=== PATIENT | female | born 2000 | race African-American/Black ===

== ENCOUNTER 2022-04-24 16:05 | Emergency (ER) | payer SELFPAY ==
--- NOTE | ~2022-04-24 | CT_ITS ---
EXAMINATION: CT abdomen pelvis w con DATE: 04/24/2022 18:41 INDICATION: lower ABD pain, N/V/D TECHNIQUE: Computed tomography (CT) of the abdomen and pelvis was performed intravenous contrast. Aut omated exposure control and iterative reconstruction technique were employed. The dose-length product was 195.17 mGy-cm. COMPARISON: None. FINDINGS: Lower thorax: Unremarkable Liver: Normal. Biliary/Gallbladder: Gallbladder is normal. No bile duct dilation. Pancreas: No mass or duct dilation. Spleen: Normal. Adrenals:No mass. Kidneys: No mass, stone, or hydronephrosis. GI tract: Distal esophageal and gastric wall edema. No small or large bowel dilation. The appendix is not visualized. Mesentery/Peritoneum: No ascites, mass, or free air. Retroperitoneum: No mass. Pelvis: Small volume free pelvic fluid, within visualized range. 2.3 cm simple appearing right ovaria n cyst. Fluid distends the normal-appearing endometrial cavity. Soft Tissues: Soft tissues and body wall unremarkable. Bones: No acute osseous finding. IMPRESSION: Esophagitis/gastritis. No other acute abdominopelvic process detected. Appendix not visualized, altho ugh there is no significant right lower quadrant inflammatory change appreciated. Reviewed, dictated and finalized at location [facility] [employer] IMPRESSION: Esophagitis/gastritis. No other acute abdominopelvic process detected. Appendix not visualized, although there is no significant right lower quadrant inflamma tory change appreciated.
[2022-04-24 16:08] VITALS: BP 119/77; PULSE 101; RESP 20; TEMP 39; O2SAT 100
--- NOTE | 2022-04-24 17:13 | ED.GENADULT ---
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 Patient reports having pain for the past 2 days. She states it feels like something is sitting on her uterus. She states pain radiates and is aching down her legs. She also reports having 1 episode of vaginal spotting, nausea and diarrhea today, and subjective fevers at home. She does report having cough, headache, myalgias and notes her significant other has been sick as well. She is not vaccinated for COVID or flu. Denies vomiting, diarrhea, constipation, dysuria, hematuria, chest pain, shortness of breath. Related Data Allergies Allergy/AdvReac Type Severity Reaction Status Date / Time No Known Allergies Allergy Verified 04/24/22 16:34 Review of Systems Review of Systems: CONSTITUTIONAL: Reports subjective fevers. CARDIOVASCULAR: Denies chest pain. RESPIRATORY: Reports cough. Denies dyspnea. GASTROINTESTINAL: Reports lower abdominal pain, nausea, and diarrhea. Denies vomiting, rectal bleeding, constipation. GENITOURINARY: Reports vaginal spotting. Denies dysuria or hematuria. MUSCULOSKELETAL: Reports pain in legs radiated from abdominal pain, myalgias. NEUROLOGIC: Reports LEE. All systems reviewed & are unremarkable except as noted in HPI and below PMFSH Past Medical History Medical History No pertinent past medical history Surgical History Surgical History (Updated 04/24/22 @ 17:20 by Alysia Paige PA-C) No pertinent past surgical history Social History Social History (Updated 04/24/22 @ 17:20 by Alysia Paige PA-C) Smoking status: Never smoker Exam Narrative: GENERAL: Well appearing, well-nourished, non-toxic, in no acute distress. HEAD: Normocephalic, atraumatic. NECK: Supple. No adenopathy, no masses. RESPIRATORY: Airway patent, respirations nonlabored. Clear to auscultation bilaterally, no rales, rhonchi, wheezing. CARDIOVASCULAR: Regular rate and rhythm without murmurs, rubs, or gallops. Peripheral pulses 2+ and equal bilaterally. ABDOMINAL: Soft, tenderness to palpation throughout lower abdomen, worst in suprapubic region, nondistended, no hepatosplenomegaly. Normoactive BS. PELVIC: Normal external genitalia. No vaginal bleeding. Normal-appearing closed cervix. Mild amount of physiologic discharge. No significant CMT. MUSCULOSKELETAL: Moves all extremities. Strength/ROM intact without gross deformities. SKIN: Warm, dry, normal color. No rashes. NEURO: A&O X3. Speech clear. Cranial nerves II-XII grossly intact. Steady gait. No ataxic movements. PSYCHIATRIC: Appropriate mood and affect. Normal interaction. Course Vital Signs Vital signs: Vital Signs Temperature 102.2 F H 04/24/22 16:08 Pulse Rate 101 H 04/24/22 16:08 Respiratory Rate 20 04/24/22 16:08 Blood Pressure 119/77 04/24/22 16:08 Pulse Oximetry 100 04/24/22 16:08 Oxygen Delivery Room Air 04/24/22 16:08 Temperature 98.4 F 04/24/22 17:23 Pulse Rate 78 04/24/22 21:25 Respiratory Rate 18 04/24/22 21:25 Blood Pressure 118/78 04/24/22 21:25 Pulse Oximetry 98 04/24/22 21:25 Oxygen Delivery Room Air 04/24/22 16:08 Medical Decision Making [facility] Narrative Medical decision making narrative: Patient presented to ED with 2-day history of lower abdominal pain, in addition to URI sx's. Temperature upon arrival 102.2, however on reevaluation with oral thermometer temperature within normal limits. She has not given antipyretics. Doubt accuracy of fever. Basic labs obtained and unremarkable. Urine with 4+ ketones. Likely due to dehydration. Normal blood sugar. No signs of infection on urin
[2022-04-24 17:23] VITALS: TEMP 36.9
[2022-04-24] MEDS: SODIUM CHLORIDE 0.9% IV 1,000 ML 999 ML IV CONT ×2 (17:30→19:17)
[2022-04-24 17:41] LABS: Appearance Urine Clear (Clear); Basophils Percent Auto 0.7 % (0.2-1.2); Bilirubin Urine 1+ (Negative); Blood Urine Trace-intact (Negative); Color Urine Yellow (Yellow); Eosinophils Percent Auto 0.2 % (0-4.4); Glucose Urine UA Negative (Negative); Hematocrit 36.1 % (37.0-47.0); Hemoglobin 11.6 g/dL (12.0-15.0); Immature Granulocyte Absolute 0.02 K/mm3 (0.00-0.031); Immature Granulocyte Percent A 0.3 % (0-0.5); Ketones Urine 4+ mg/dL (Negative); Leukocyte Esterase Ur Negative LEU/UL (Negative); Lymphocytes Absolute Auto 0.38 K/mm3 (0.9-3.2); Lymphocytes Percent Auto 6.3 % (18.3-44.2); Mean Corpuscular HGB Conc 32.1 g/dl (32-36); Mean Corpuscular Hemoglobin 28.7 pg (26-34); Mean Corpuscular Volume 89.4 fl (80-100); Mean Platelet Volume 10.3 fl (7.4-10.4); Monocytes Percent Auto 16.3 % (2.6-8.5); Neutrophils Absolute Auto 4.6 K/mm3 (1.3-6.7); Neutrophils Percent Auto 76.2 % (45.5-73.1); Nitrate Urine Negative (Negative); Platelet Count Result 222 k/mm3 (150-375); Protein Urine 1+ mg/dL (Negative); Red Blood Count 4.04 M/mm3 (4.2-5.4); Red Cell Distribution Width 15.9 % (11.5-14.5)
[2022-04-24 17:46] LABS: Mucus Urine Rare /lpf; RBC Urine 0-2 /hpf (0-2); Squamous Epithelial Cell Urine Few /hpf (Few); WBC Urine 0-3 /hpf
[2022-04-24 17:47] LABS: Lactic Acid Reflex 1.6 mmol/L (0.7-2.0)
[2022-04-24 17:48] LABS: Add Urine Microscopic? YES
[2022-04-24 18:11] LABS: Alanine Aminotransferase 14 U/L (6-35); Albumin Level 4.9 g/dL (3.5-5.1); Alkaline Phosphatase 48 U/L (38-126); Anion Gap 12 mmol/L (8-16); Aspartate Amino Transferase 32 U/L (14-36); Bilirubin,Total 0.5 mg/dL (0.2-1.3); Blood Urea Nitrogen 7 mg/dL (7-17); Calcium 9.3 mg/dL (8.4-10.2); Carbon Dioxide 22 mmol/L (22-30); Chloride 102 mmol/L (98-107); Estimated CRCL calculation 78 ml/min; Estimated Glomerular Filt Rate > 60; Glucose 90 mg/dL (65-110); Potassium 3.7 mmol/L (3.4-5.0); Sodium 136 mmol/L (137-145)
[2022-04-24 18:15] LABS: Influenza A QL RT-PCR Negative (Negative); Influenza B QL RT-PCR Negative (Negative); RSV RNA, RT-PCR Negative (Negative); SARS-CoV-2 RNA PCR Positive
[2022-04-24] MEDS: PANTOPRAZOLE SODIUM IV 40 MG VIAL IV PUSH (19:56)
[2022-04-24 21:25] VITALS: BP 118/78; PULSE 78; RESP 18; O2SAT 98
== END 2022-04-24 21:27 | disposition home or self-care (01) ==
PROVIDERS: Emergency Provider Physician Assistant
DX: U07.1 COVID-19 (principal); E86.0 Dehydration; R11.0 Nausea; Z28.310 Unvaccinated for COVID-19; K29.70 Gastritis, unspecified, without bleeding; K20.90 Esophagitis, unspecified without bleeding
CPT/HCPCS: 36415; 74177; 80053; 81001; 81025; 83605; 85025; 87637; 96361; 96365; 96375; 99284; C9113; J0131; J7030; Q9967

== ENCOUNTER 2022-10-03 14:48 | Emergency (ER) | payer OTHER, SELFPAY ==
[2022-10-03 14:50] VITALS: BP 127/93; PULSE 99; RESP 20; TEMP 36.8; O2SAT 100
--- NOTE | 2022-10-03 16:05 | ED.ABDPAIN ---
HPI - Abdominal Pain General Chief Complaint: Abdominal Pain Stated Complaint: ABD PAIN XTD Time Seen by Provider: 10/03/22 15:14 History of Present Illness HPI narrative: 22-year-old female presented the emergency department for evaluation of left upper quadrant pain. Patient states she was at work and started developing some nausea and vomiting. Patient states she has no prior history of gastritis or GERD. Patient denies any right upper quadrant pain or lower abdominal pain. Patient denies any fevers fall or injuries. Related Data Allergies Allergy/AdvReac Type Severity Reaction Status Date / Time No Known Allergies Allergy Verified 10/03/22 16:12 Review of Systems Review of Systems: All systems reviewed & are unremarkable except as noted in HPI and below PMFSH Past Medical History Medical History No pertinent past medical history Surgical History Surgical History (Updated 04/24/22 @ 17:20 by Alysia Paige PA-C) No pertinent past surgical history Social History Social History (Updated 04/24/22 @ 17:20 by Alysia Paige PA-C) Smoking status: Never smoker Exam Narrative: APPEARANCE: Well appearing, no pain, no distress, well-nourished. HEAD: normocephalic, atraumatic. EYES: PERRLA/EOMI, conjunctivae clear. NOSE: Normal no drainage NECK: Supple. No adenopathy, no masses. RESPIRATORY: Airway patent, respirations nonlabored. Clear to auscultation bilaterally, no rales, rhonchi, wheezing. CARDIOVASCULAR: Regular rate and rhythm without murmurs rubs or gallops. ABDOMINAL: Soft, left upper quadrant tenderness to palpation. No epigastric tenderness to palpation MUSCULOSKELETAL: Moves all extremities. Strength/ROM intact, No edema, No calf tenderness. NEURO: Alert. Cranial nerves II through XII intact. Grossly intact SKIN: Warm, dry. Normal Color Course Course Emergency Course: 22-year-old female with evaluation of left upper quadrant pain. Patient was treated with a GI cocktail. Reports that her symptoms were resolved after the GI cocktail. Patient family were updated on the plan for treatment for home for suspected gastritis. Patient was also encouraged of close follow-up with GI. All questions concerns and patient and family were comfortable with the plan for discharge and close follow-up. Vital Signs Vital signs: Vital Signs Temperature 98.2 F 10/03/22 14:50 Pulse Rate 99 10/03/22 14:50 Respiratory Rate 20 10/03/22 14:50 Blood Pressure 127/93 H 10/03/22 14:50 Pulse Oximetry 100 10/03/22 14:50 Oxygen Delivery Room Air 10/03/22 14:50 Temperature 98.2 F 10/03/22 14:50 Pulse Rate 99 10/03/22 14:50 Respiratory Rate 20 10/03/22 14:50 Blood Pressure 127/93 H 10/03/22 14:50 Pulse Oximetry 100 10/03/22 14:50 Oxygen Delivery Room Air 10/03/22 14:50 Discharge Plan Discharge Clinical Impression: Acute LUQ pain Patient Disposition: Home, Self-Care Condition: Stable Instructions: Antibiotic Form, Gastritis (ED), Diet for Stomach Ulcers and Gastritis (ED) Additional Instructions: Avoid NSAIDs and alcohol. Follow a bland diet. Take Prilosec daily for 14 days. Maalox as needed for intermittent abdominal pain. Have close follow-up with GI. If you have any worsening symptoms or questions or concerns then please call or return to the emergency department. Prescriptions: No Action ondansetron 4 mg tablet,disintegrating 4 mg PO Q8H PRN (Reason: nausea and vomiting) Qty: 15 0RF Follow-up/Referrals: PHYSICIAN NOT ON STAFF,NONSTAFF [Primary Care Provider] - Roderick Nance MD [Physician] -
[2022-10-03] MEDS: BELLADONNA ALK/PHENOB ELIX 10 ML, MAG HYDROX/ALUMINUM HYD/SIMETH 30 ML, LIDOCAINE HCL 2... PO (16:12)
[2022-10-03] MEDS: PANTOPRAZOLE 40 MG TABLET PO (17:26)
== END 2022-10-03 17:29 | disposition home or self-care (01) ==
PROVIDERS: Emergency Provider Emergency Medicine
DX: R10.12 Left upper quadrant pain (principal)
CPT/HCPCS: 99283; A9270